=== PATIENT | male | born 1975 | race Hispanic/Latino ===

== ENCOUNTER 2021-07-03 22:00 | Emergency (ER) | payer BC ==
[2021-07-04] MEDS ORDERED: predniSONE 20 MG TAB ONE (00:13)
[2021-07-04] MEDS ORDERED: Ibuprofen 200 MG TAB ONE (00:13)
[2021-07-04] MEDS ORDERED: HYDROcodone/Acetaminophen 5/325 mg Tablet ONE (00:13)
== END 2021-07-04 00:20 | disposition home or self-care (01) ==
LOC: CSHERS 22:00
DX: M25.461 Effusion, right knee (principal); M10.9 Gout, unspecified
CPT/HCPCS: 99283; J7512